=== PATIENT | male | born 1990 | race Caucasian/White ===

== ENCOUNTER 2024-04-16 13:45 | Emergency (ER) | payer MEDICAID, SELFPAY ==
--- NOTE | 2024-04-16 13:53 | ECG_ITS ---
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 Measurements Intervals [place] Rate: 62 P: 76 CT: 180 QRS: 104 QRSD: 108 T: 62 QT: 379 QTc: 385 Interpretive Statements SINUS RHYTHM INDETERMINATE AXIS No previous ECG available for comparison Electronically Signed On 04-16-2024 16:50:55 CDT by Manny Chau M.D. [id number] f
[2024-04-16 14:00] VITALS: BP 150/116; PULSE 73; RESP 16; TEMP 36.6; O2SAT 99
[2024-04-16 15:15] LABS: Charge for UA Resulting for Rev
[2024-04-16 15:29] LABS: Bilirubin Urine Negative (Negative); Blood Urine Negative (Negative); Glucose Urine UA Negative (Normal); Ketones Urine Negative (Negative); Leukocyte Esterase Urine Negative (Negative); Nitrate Urine Negative (Negative); Protein Urine Negative (Negative); Specific Gravity, Urine 1.018 (1.005-1.030); Urine Appearance Turbid (CLEAR); Urine Color Yellow (Yellow); pH Urine 7.5 (5-7)
[2024-04-16 15:32] LABS: Bacteria Urine None Seen /hpf; Hyaline Casts Urine 0-4 /lpf; RBC Urine 0-2 /hpf (0-2); Squamous Epithelial Cell Urine 0-5 /hpf (0-5); WBC Urine 0-5 /hpf (0-5)
--- NOTE | 2024-04-16 15:36 | W.ED.BACK ---
HPI - Back Pain/Injury General: Chief Complaint: Back Pain/Injury Stated Complaint: uppper back pian Time Seen by Provider: 04/16/24 15:33 History of Present Illness: 33-year-old male patient comes in today for complaints of left-sided chest pain. Patient reports pain is exacerbated with movement or deep inspiration. Patient does endorse digging posts holes about 2 to 3 days ago. Patient reports the pain started today. Patient appears nontoxic. Patient appears with intermittent pain with some movement and deep inspiration at times. Review of Systems General: Reports: 10 or more systems reviewed and unremarkable except in HPI and below PFSH ED PFSH: Medical History (Updated 04/16/24 @ 16:34 by TONI Alston) Aortic valve mass Family History Grandmother Heart attack Social History Smoking and tobacco/nicotine status: former use of tobacco/nicotine Alcohol intake: current Alcohol intake frequency: 0-2 Drinks per Day Alcohol type: beer Substance/Drug Use: current Substance/Drug use frequency: daily Other substance/drug use details: has medical card Physical Exam Const: COMMON NORMALS: alert HENMT: COMMON NORMALS: normocephalic HEAD & SCALP: normocephalic Neck/C-Spine: COMMON NORMALS: full ROM Chest: COMMONS NORMALS: normal inspection of the chest and normal palpation of entire chest wall Resp: COMMON NORMALS: normal respiratory effort and clear to auscultation bilaterally AUSCULTATION: clear to auscultation bilaterally Cardio: COMMON NORMALS: regular rate, regular rhythm, S1 normal heart sound present and S2 normal heart sound present RATE: regular rate RHYTHM: regular rhythm HEART SOUNDS: S1 normal heart sound present and S2 normal heart sound present GI: COMMON NORMALS: Soft to palpation and non-tender PALPATION: Yes Soft to palpation : COMMON NORMALS: Yes no CVA tenderness BLADDER/KIDNEY EXAM: Yes no CVA tenderness Back/Pelvis: COMMON NORMALS: no CVA tenderness Extremity: COMMON NORMALS: normal to inspection, full ROM and no pedal edema Neuro: SENSORIUM/ORIENTATION: Yes alert Skin: COMMON NORMALS: turgor normal GENERAL SKIN EXAM: turgor normal Course Vital Signs: Vital signs: Vital Signs Temperature 98 F 04/16/24 14:00 Pulse Rate 73 04/16/24 14:00 Respiratory Rate 16 04/16/24 14:00 Blood Pressure 150/116 04/16/24 14:00 Pulse Oximetry 99 04/16/24 14:00 Oxygen Delivery Me thod Room Air 04/16/24 14:00 MDM - Back Pain/Injury Medical Decision Making 33-year-old male patient comes in today for complaints of chest pain. Patient pain is exacerbated with deep inspiration and occasionally with reaching or certain movement. Patient appears nontoxic. Lungs are clear to auscultation. Palpation of the chest wall does not elicit pain. Palpation of the abdomen does not elicit pain. Vital signs are normal except for some elevated blood pressure at 150/116. EKG shows a sinus rhythm. Differential diagnosis includes but not limited to pleurisy, pneumonia, costochondritis, muscle strain. Chest x-ray was unremarkable showing no changes from prior exams. EKG showed sinus rhythm without any ectopy. CBC CMP and urinalysis were normal. Reviewed exam with patient recommendation for treatment for pleuritic chest pain versus costochondritis. Patient was put on naproxen and prednisone. Patient reports understanding of care plan need for follow-up or return to the ER for worsening symptoms such as increased shortness of breath or high fever. Labs 04/16/24 15:36 04/16/24 15:36 Radiology Impressions Chest X-Ray 04/16/24 15:41 IMPRESSION: No acute findings. Laboratory Results WBC 5.68 10^3/uL (3.29-11.43) 04/16/24 15:36 RBC 4.97 10^6/uL (3.85-5.65) 04/16/24 15:36 Hgb 14.60 g/dL (11.27-16.99) 04/16/24 15:36 Hct 43.6 % (37-53) 04/16/24 15:36 MCV 87.7 fl (82-101) 04/16/24 15:36 MCH 29.4 pg (27-33) 04/16/24 15:36 MCHC 33.5 g/dL (30-55) 04/16/24 15:36 RDW 12.4 % (12.1-15.1) 04/16/24 15:36 Plt Count 197 10^3/cmm (157-399) 04/16/24 15:36 MPV 10.3 fL (7.4-10.4) 04/16/24 15:36 Neut % (Auto) 57.9 % 04/16/24 15:36 Lymph % (Auto) 31.5 % 04/16/24 15:36 [place] % (Auto) 8.3 % 04/16/24 15:36 Eos % (Auto) 1.2 % 04/16/24 15:36 Baso % (Auto) 0.9 % 04/16/24 15:36 Neut # (Auto) 3.29 10^3/uL (1.8-7.7) 04/16/24 15:36 Lymph # (Auto) 1.8 10^3/uL (0.8-4.8) 04/16/24 15:36 [place] # (Auto) 0.5 10^3/uL (0.2-0.9) 04/16/24 15:36 Eos # (Auto) 0.1 10^3/uL (0.0-0.8) 04/16/24 15:36 Baso # (Auto) 0.1 10^3/uL (0.0-0.1) 04/16/24 15:36 Nucleated RBC % (auto) 0 % 04/16/24 15:36 Nucleated RBCs # 0.0 /100WBC 04/16/24 15:36 Sodium 139 mmol/L (136-145) 04/16/24 15:36 Potassium 4.0 mmol/L (3.5-5.1) 04/16/24 15:36 Chloride 104 mmol/L (98-107) 04/16/24 15:36 Carbon Dioxide 26 mmol/L (22-29) 04/16/24 15:36 Anion Gap 13.0 (5-19) 04/16/24 15:36 BUN 15 mg/dL (6-20) 04/16/24 15:36 Creatinine 0.7 mg/dL (0.7-1.2) 04/16/24 15:36 GFR Calculation 131.5 mL/min (90-130) H 04/16/24 15:36 Glucose 90 mg/dL (65-115) 04/16/24 15:36 Calculated Osmolality 288 mOsm/kg (285-295) 04/16/24 15:36 Calcium 9.4 mg/dL (8.5-10.5) 04/16/24 15:36 Total Bilirubin 0.6 mg/dL (0.15-1.2) 04/16/24 15:36 AST 14 U/L (0-40) 04/16/24 15:36 ALT 15 U/L (0-41) 04/16/24 15:36 Alkaline Phosphatase 45 U/L (40-130) 04/16/24 15:36 Creatine Kinase 85 U/L (39-308) 04/16/24 15:36 Total Protein 7.1 g/dL (6.6-8.7) 04/16/24 15:36 Albumin 4.7 g/dL (3.5-5.2) 04/16/24 15:36 Globulin 2.4 g/dL (1.3-4.6) 04/16/24 15:36 Lipase 31 U/L (13-60) 04/16/24 15:36 Urine Color Yellow (Yellow) 04/16/24 15:11 Urine Appearance Turbid (CLEAR) A 04/16/24 15:11 Urine pH 7.5 (5-7) 04/16/24 15:11 Ur Specific Jackson 1.018 (1.005-1.030) 04/16/24 15:11 Urine Protein Negative (Negative) 04/16/24 15:11 Urine Glucose (UA) Negative (Normal) 04/16/24 15:11 Urine Ketones Negative (Negative) 04/16/24 15:11 Urine Blood Negative (Negative) 04/16/24 15:11 Urine Nitrate Negative (Negative) 04/16/24 15:11 Urine Bilirubin Negative (Negative) 04/16/24 15:11 Urine Urobilinogen 1.0 mg/dL (Negative) 04/16/24 15:11 Ur Leukocyte Esterase Negative (Negative) 04/16/24 15:11 Urine RBC 0-2 /hpf (0-2) 04/16/24 15:11 Urine WBC 0-5 /hpf (0-5) 04/16/24 15:11 Ur Squamous Epith Cells 0-5 /hpf (0-5) 04/16/24 15:11 Amorphous Sediment Not Reportable 04/16/24 15:11 Urine Bacteria None seen /hpf (NONE) 04/16/24 15:11 Hyaline Casts 0-4 /lpf H 04/16/24 15:11 All radiology interpretation(s) finalized by discharge EKG Data EKG 1: I personally reviewed and interpreted this EKG as follows: EKG interpretation date: 04/16/24 EKG interpretation time: 15:46 Prior EKG tracings: not available for review Interpretation: EKG shows a sinus rhythm with a regular rate at [address] elevation or ectopy is noted. No prior exams available for comparison. Computer generated interpretation: Sinus rhythm. Indeterminate axis. Discharge Plan Discharge Patient Disposition: Home Clinical Impression: Pleuritic chest pain Condition: Stable Prescriptions: New prednisone 20 mg tablet 20 mg PO DAILY 7 Days Qty: 7 0RF naproxen 500 mg tablet 500 mg PO BID Qty: 20 0RF Discharge Orders: Discharge ED (Routine); Ordered 04/16/24 Ordered By: Serafin Jones Discharge Diet: Usual diet Discharge Activity: Increase activity as tolerated Patient Instructions: Chest Pain (ED) Activity Restrictions/Additional Instructions: Take medications as directed. Use acetaminophen for further pain relief. Drink plenty of water and fluids medication. Follow-up with primary care for further instructions. Return to ED for new concerns. Thank you for choosing [facility] for your healthcare needs today. Please realize that you were seen in the emergency department and that we are providing you with an emergency medical screening exam and this may not be a complete and all exclusive of all testing and/or medical workup we may need to determine your element or severity of your illness. It is very important that you follow-up as instructed with your primary care provider or specialist for the additional evaluation and to discuss your medical treatment plan. You may return to the emergency department should you have concerns or if your condition changes or worsens in any way. Coding Level of Care Code ED Electrical Apprentice for Joanna Winters
--- NOTE | 2024-04-16 15:41 | XRR_ITS ---
PROCEDURE INFORMATION: Exam: XR Chest Exam date and time: 04/16/2024 3:50 PM Age: 33 years old Clinical indication: Shortness of breath; Angina pectoris; Patient HX: Chest pains and SOB with upper back pain. ; Additional info: Chest pain TECHNIQUE: Imaging protocol: Radiologic exam of the chest. Views: 2 views. COMPARISON: No relevant prior studies available. FINDINGS: Lungs: Lungs are clear. Pleural spaces: There is no pleural effusion or pneumothorax. Heart/Mediastinum: Cardiomediastinal contours are unremarkable. Bones/joints: Bones are unremarkable. XR/XR chest 2V* [id number] IMPRESSION: No acute findings.
[2024-04-16 15:49] LABS: Basophils # 0.1 10^3/uL (0.0-0.1); Basophils % 0.9 %; Eosinophils # 0.1 10^3/uL (0.0-0.8); Eosinophils % 1.2 %; Hematocrit 43.6 % (37-53); Lymphocytes # 1.8 10^3/uL (0.8-4.8); Lymphocytes % 31.5 %; Mean Corpuscular HGB Conc 33.5 g/dL (30-55); Mean Corpuscular Hemoglobin 29.4 pg (27-33); Mean Corpuscular Volume 87.7 fl (82-101); Mean Platelet Volume 10.3 fL (7.4-10.4); Monocytes # 0.5 10^3/uL (0.2-0.9); Monocytes % 8.3 %; Neutrophils # 3.29 10^3/uL (1.8-7.7); Neutrophils % 57.9 %; Nucleated Red Blood Cells % 0 %; Platelet Count 197 10^3/cmm (157-399); Red Blood Count 4.97 10^6/uL (3.85-5.65); Red Cell Distribution Width 12.4 % (12.1-15.1); White Blood Count 5.68 10^3/uL (3.29-11.43)
[2024-04-16 16:05] LABS: Alanine Aminotransferase 15 U/L (0-41); Albumin Level 4.7 g/dL (3.5-5.2); Alkaline Phosphatase 45 U/L (40-130); Aspartate Amino Transferase 14 U/L (0-40); Blood Urea Nitrogen 15 mg/dL (6-20); Calcium 9.4 mg/dL (8.5-10.5); Carbon Dioxide 26 mmol/L (22-29); Chloride 104 mmol/L (98-107); Creatine Phosphokinase 85 U/L (39-308); Creatinine Clr Calc Pharmacy 155.7852; Globulin 2.4 g/dL (1.3-4.6); Glomerular Filtration Rate 131.5 mL/min (90-130); Glucose 90 mg/dL (65-115); Lipase 31 U/L (13-60); Osmolality Calculated 288 mOsm/kg (285-295); Sodium 139 mmol/L (136-145); Total Bilirubin 0.6 mg/dL (0.15-1.2); Total Protein 7.1 g/dL (6.6-8.7)
[2024-04-16 16:48] VITALS: BP 143/99; PULSE 71; RESP 16; TEMP 36.6; O2SAT 100
== END 2024-04-16 16:48 | disposition home or self-care (01) ==
PROVIDERS: Emergency Provider Nurse Practitioner Family
DX: R09.1 Pleurisy (principal); Z87.891 Personal history of nicotine dependence
CPT/HCPCS: 71046; 80053; 81003; 81015; 82550; 83690; 85025; 93005; 99285